=== PATIENT | female | born 1965 | race Caucasian/White ===

== ENCOUNTER 2020-10-20 17:31 | Emergency (ER) | payer MEDICAID, SELFPAY ==
[2020-10-20] VITALS (9 sets, daily range): BP systolic 122–163; BP diastolic 67–84; PULSE 47–70; RESP 16–18; TEMP 37; O2SAT 97–100; BMI 24.1
--- NOTE | 2020-10-20 17:49 | EKG12_ITS ---
Test Reason : CP Blood Pressure : / mmHG Vent. Rate : 058 BPM Atrial Rate : 058 BPM P-R Int : 146 ms QRS Dur : 080 ms QT Int : 420 ms P-R-T Axes : 081 066 080 degrees QTc Int : 412 ms Poor data quality, interpretation may be adversely affected Sinus bradycardia Septal infarct , age undetermined Abnormal ECG Confirmed by MYNOR SEVERINO, ALICIA ([id number]), editorial writer MARTITA ORTEGA ([id number]) on 10/23/2020 11:14:07 AM Referred By: LILLIAN Confirmed By:ALICIA LOWE MD
--- NOTE | 2020-10-20 17:50 | EDS_ITS ---
HPI History of Present Illness Chief Complaint: Chest Pain Informant: patient Onset/Context/Timing Onset: Hours (1) Activity at onset: sudden and rest Timing: Continuous Quality: Positive for Heaviness and Pressure Location: Substernal Current Severity: Moderate Maximum Severity: Moderate Worsened By: Nothing; Not Worsened By Movement of Arm, Movement of Torso and Breathing Relieved By: Nothing Associated Symptoms: Positive for Nausea, Dyspnea and Lightheadedness; Negative for Vomiting, Diaphoresis, Cough, Fever, Acid Reflux and Palpitations Narrative Narrative: Chest pain for about an hour, nonpleuritic substernal pressure/heaviness. Associated with shortness of breath, nausea, never had this before and no known history of heart problems. She states she pretty much just sees her doctor whenever she is sick. They have told her her blood pressures been a little elevated in the past but not put her on any medication for it. She is a 1.5 pack/day smoker, denies illicit drug use. Prior Similar Symptoms: No CVD Risk Factors: Positive for Hypertension (Possibly, but my doctor is watching it) and Smoking; Negative for Diabetes, Hypercholesterolemia and Family History 1' </=55 PE Risk Factors: Negative for Recent Travel/Surgery, Recent Immobilization, Prior DVT or PE, Cancer and OCP + Smoking + >/=35 PFSH PFSH no medical history Home Medications No Known/Unobtainable [No Known Home Medications] 05/31/15 [History Last Taken Unknown] Allergy/AdvReac Type Severity Reaction Status Date / Time No Known Allergies Allergy Verified 01/16/15 11:46 Social History (Updated 10/20/20 @ 17:[address] Spenser Morrow MD) Smoking Status: Heavy Smoker (>10/day) substance use type: does not use ROS ROS ED Constitutional Constitutional ED: Reports malaise; Denies chills or fever(s) Eyes Eyes: Denies change in vision or diplopia ENT ENT ED: Denies rhinorrhea or sore throat Cardiovascular Cardiovascular: Reports chest pain; Denies palpitations Respiratory/Chest Respiratory/Chest: Reports dyspnea; Denies cough Gastrointestinal Gastrointestinal: Reports nausea; Denies abdominal pain, diarrhea or vomiting Genitourinary Genitourinary ED: Denies dysuria or hematuria Musculoskeletal Musculoskeletal: Denies back pain or neck pain Integumentary Denies abscess or rash Neurologic Neurologic: Denies headache(s), paresthesias or weakness Psychiatric Psychiatric: Denies anxiety or suicidal thoughts EXAM Physical Exam Const Vital Signs: 10/20/20 17:41 10/20/20 17:58 10/20/20 17:59 Temperature 98.6 F Temperature Source Oral Pulse Rate 64 52 L Respiratory Rate 16 Respiratory Effort Normal Respiratory Pattern Normal Blood Pressure 151/75 H 151/75 H Blood Pressure Mean 100 Pulse Ox 100 98 Oxygen Delivery Method Room Air Room Air 10/20/20 18:05 10/20/20 18:18 10/20/20 19:21 Temperature Temperature Source Pulse Rate 70 54 L 47 L Respiratory Rate 16 Respiratory Effort Respiratory Pattern Blood Pressure 163/84 H 161/78 H 132/76 H Blood Pressure Mean 94 Pulse Ox 99 Oxygen Delivery Method 10/20/20 20:00 10/20/20 21:00 Temperature Temperature Source Pulse Rate 47 L 47 L Respiratory Rate 16 18 Respiratory Effort Respiratory Pattern Blood Pressure 128/73 H 130/67 H Blood Pressure Mean 91 88 Pulse Ox 97 99 Oxygen Delivery Method Positive well nourished and well developed General Appearance ED: well developed and NAD HEENT Reports moist mucous membranes normocephalic and atraumatic Eyes PERRL and EOMs intact bilaterally Neck full ROM, supple and no JVD Resp normal respiratory effort and clear to auscultation bilaterally Cardio regular rate, regular rhythm and no murmurs GI non-tender and non-distended Auscultation: normoactive bowel sounds Palpation: soft Back/Spine no CVA tenderness General Back: other FROM Extremity normal to inspection Extremity Narrative: no calf tenderness/cords General Extremety ED: Negative for edema, pulses abnormal or tenderness General Extremity: Negative for edema or pulses abnormal Neuro oriented x3, CN's II-XII intact bilaterally and no sensory deficits noted Sensorium / Orientation: awake and alert Motor Exam: strength 5/5 throughout Skin no rashes or lesions noted and no wounds General Skin Exam: other dry Heart Score History: Moderately Suspicious ECG: Normal Age: >45 - <65 years Risk Factors: 1 or 2 Risk Factors (smoking, possibly borderline HTN) Troponin: </= Normal Limit Score: 3 MDM MDM MDM Narrative Medical decision making narrative: Patient was given nitroglycerin, her pain resolved. As I discussed with the patient, and concerned about her symptoms. She is a heavy smoker which is her major risk factor. I offered admission but she does not want to be admitted and wants to go home and was amenable to a 3- hour delta troponin measurement which was done and negative. Her heart score supports this. She was advised to take aspirin daily, avoid physical exertion, and to follow-up with her doctor after the weekend, and we discussed reasons to return. She is comfortable with that plan. Lab Data Attestation: I reviewed the patient's lab results. Labs: Laboratory Results - last 24 hr 10/20/20 10/20/20 10/20/20 17:40 17:40 20:25 WBC 9.5 RBC 4.14 L Hgb 12.6 Hct 38.9 MCV 94.0 MCH 30.4 MCHC 32.4 RDW Std Deviation 46.5 H RDW Coeff of Teo 13.5 Plt Count 278 MPV 10.1 Immature Gran % (Auto) 0.100 Neut % (Auto) 44.7 L Lymph % (Auto) 48.5 H Murray % (Auto) 5.8 Eos % (Auto) 0.6 Baso % (Auto) 0.3 Absolute Neuts (auto) 4.3 Absolute Lymphs (auto) 4.63 H Nucleated RBC % 0 Sodium 136 Potassium 3.4 L Chloride 105 Carbon Dioxide 25.0 Anion Gap 6 BUN 14 Creatinine 0.89 Estim Creat Clear Calc 65.78 Est GFR (MDRD) Af Amer 85 Est GFR (MDRD) Non-Af 71 BUN/Creatinine Ratio 15.7 Glucose 101 Calcium 8.9 Troponin I < 0.015 < 0.015 Radiography Chest X-Ray - ED: 1 View, Read by ED Physician, Normal and No Acute Disease Diagnostic Testing: Radiology Impression Chest X-Ray 10/20/20 18:10 IMPRESSION: Normal x-ray examination of the chest. Electronically Signed: Shar Granda DO at 19:34 EDT Tel [phone], Service support , EKG Initial EKG: Attestation: I personally reviewed and interpreted this EKG as follows: Interpretation: Sinus Rhythm and No Acute Injury Pattern Prior EKG tracings: available for review Prior: Unchanged (2014) Discharge Plan Triage Chief Complaint: Chest Pain ED Provider: Spenser Morrow Dx/Rx/DC Orders Clinical Impression: Chest pain, unspecified Instructions: ED Chest Pain, Uncertain Cause Prescriptions: No Action No Known Home Medications RF: 0 Primary Care Provider: Tom Mccray Referrals: Tom Mccray MD [Primary Care Provider] - As soon as possible (call for appt ) Activity Restrictions/Additional Instructions: Take baby aspirin 81 mg once daily until you are seen to get other recommendations. Disposition Disposition: Home, self care Discharge Date/Time: 10/20/20 22:10
[2020-10-20] MEDS: Ondansetron 4 MG/2 ML Vial IV (17:58)
[2020-10-20] MEDS: Nitroglycerin SL (ED/IMG/CATH) 0.4 MG TABLET SL ×3 (17:59→18:18)
[2020-10-20] MEDS: Aspirin 81 MG TAB.CHEW 324 MG PO (17:59)
[2020-10-20 18:10] LABS: Absolute Lymphocyte Count 4.63 X10^3/uL (0.83-4.51); Absolute Neutrophil Count 4.3 X10^3/uL (2.0-7.7); Basophil# 0.03 X10^3/uL; Basophil% 0.3 % (0-1); Eosinophil# 0.06 X10^3/uL; Eosinophils% 0.6 % (0-5); Hematocrit 38.9 % (37-47); Hemoglobin 12.6 g/dL (12.0-15.0); Lymphocyte # 4.63 X10^3/ul (0.83-4.51); Lymphocyte % 48.5 % (19-41); Mean Corp Hgb Conc 32.4 g/dL (32-36); Mean Corpuscular Hgb 30.4 pg (27.0-32.0); Mean Platelet Vol. 10.1 fl (6.2-12.0); Monocyte# 0.55 X10^3/uL; Monocyte% 5.8 % (0-10); NRBC Flagged by Analyzer 0 % (0-5); Neutrophil # 4.26 X10^3/uL (2.7-7.7); Neutrophil % 44.7 % (47-70); Platelet Count 278 K/mm3 (150-450); RBC Distribution Width CV 13.5 % (11.6-14.6); RBC Distribution Width SD 46.5 fl (35.1-43.9); Red Blood Count 4.14 M/mm3 (4.2-5.4); White Blood Count 9.5 K/mm3 (4.4-11.0)
--- NOTE | 2020-10-20 18:10 | RAD_ITS ---
STUDY: X-RAY CHEST REASON FOR EXAM: Female, 55 years old. Chest pain TECHNIQUE: Frontal view COMPARISON: None. FINDINGS: The lungs are clear and expanded. There is no demonstrated pleural abnormality. Normal size heart. Normal mediastinum and ju[place]. Normal visualized pulmonary arteries. Normal visualized aortic arch and descending thoracic aorta. Normal visualized thoracic spine. Normal visualized ribs, clavicles, and shoulders. There is no demonstrated abnormality of the visualized soft tissue structures of the upper abdomen. RAD/Chest 1 View (Portable) IMPRESSION: Normal x-ray examination of the chest. Electronically Signed: Shar Granda DO at 19:34 EDT Tel [phone], Service support ,
[2020-10-20 18:23] LABS: Anion Gap 6 (5-15); BUN 14 mg/dL (7-18); BUN/Creat Ratio 15.7 RATIO (10-20); Calcium,Total 8.9 mg/dL (8.5-10.1); Chloride 105 mmol/L (98-107); Creatinine, Serum 0.89 mg/dL (0.55-1.02); EST Glomerular Filtration Rate 71 mL/min (>60); Est Glom Filt Rate - Afr Amer 85 mL/min (>60); Estimated Creatinine Clearance 65.78 ml/min; Glucose 101 mg/dL (74-106); Potassium 3.4 mmol/L (3.5-5.1); Sodium Level 136 mmol/L (136-145)
== END 2020-10-20 22:10 | disposition home or self-care (01) ==
PROVIDERS: Emergency Provider Emergency Medicine; PCP Family Medicine
DX: R07.9 Chest pain, unspecified (principal); R11.0 Nausea; R06.02 Shortness of breath; F17.210 Nicotine dependence, cigarettes, uncomplicated
CPT/HCPCS: 36415; 71045; 80048; 84484; 85025; 87426; 93005; 96374; 99285; A4216; J2405

== ENCOUNTER 2022-12-19 10:51 | Emergency (ER) | payer MEDICAID, SELFPAY ==
[2022-12-19 10:52] VITALS: BP 151/84; PULSE 67; RESP 18; TEMP 36.2; O2SAT 97; BMI 24.7
--- NOTE | 2022-12-19 11:11 | EDS_ITS ---
HPI History of Present Illness Chief Complaint: Dental Informant: patient Narrative Narrative: Increasing dental pain since this morning left upper. History of poor dentition. She has had extractions in the past. She called insurance and was told she only see a dentist in [place] in March. Denies hot cold sensitivities. States throbbing. No fevers. No allergies. She states her plans are for full teeth extraction. Denies history of gastric ulcers or kidney injury. Prior similar symptoms: Yes PFSH PFSH Home Medications ibuprofen 600 mg tablet 600 mg PO Q6H PRN PRN fever #30 TABLETS 12/19/22 [Rx Last Taken Unknown] penicillin V potassium 500 mg tablet 500 mg PO 4X/DAY #40 tabs 12/19/22 [Rx Last Taken Unknown] Allergy/AdvReac Type Severity Reaction Status Date / Time No Known Allergies Allergy Verified 01/16/15 11:46 Social History Smoking Status: Heavy Smoker (>10/day) substance use type: does not use ROS ROS ED Constitutional Constitutional ED: Denies chills, fever(s) or sweats Eyes Eyes: Denies change in vision ENT ENT ED: Reports other Details: Dental pain ; Denies dysphagia or sore throat Cardiovascular Cardiovascular: Denies chest pain, leg edema, palpitations or racing heartbeat Respiratory/Chest Respiratory/Chest: Denies cough, dyspnea or dyspnea on exertion Gastrointestinal Gastrointestinal: Denies abdominal pain, diarrhea, nausea or vomiting Genitourinary Genitourinary ED: Denies dysuria, hematuria or urinary frequency Musculoskeletal Musculoskeletal: Denies back pain, extremity pain or neck pain Integumentary Denies rash or wounds Neurologic Neurologic: Denies headache(s), paresthesias or weakness EXAM Physical Exam Const Vital Signs: 12/19/22 10:52 Temperature 97.1 F L Temperature Source Temporal Pulse Rate 67 Respiratory Rate 18 Blood Pressure 151/84 H Blood Pressure Mean 106 Pulse Ox 97 Positive well nourished and well developed General Appearance ED: well developed and NAD HEENT Reports moist mucous membranes HEENT Narrative: Diffuse dental caries with DKA. There is no fluctuance no focal abscess. There is tooth loosening to tooth #13, missing 14, decay of 15 missing 16, on the side with symptoms. No sublingual edema. Airway patent. No trismus. normocephalic and atraumatic Eyes PERRL, EOMs intact bilaterally and conjunctivae normal General Eye ED: Yes normal appearance of both eyes Neck no lymphadenopathy and supple General: Negative for tenderness Chest Wall Chest: Negative for tenderness Resp normal respiratory effort and normal air movement Effort and Inspection: symmetric chest movement; Negative for respiratory distress Cardio regular rate, regular rhythm and no murmurs Peripheral Pulses: pulses 2+ throughout GI normal to inspection, nondistended, normoactive bowel sounds and non-tender Palpation: Negative for guarding or rebound tenderness present Back/Spine no CVA tenderness and no thoracic nor lumbar tenderness Extremity normal to inspection General Extremety ED: Negative for edema or tenderness General Extremity: Negative for edema Neuro oriented x3 and no sensory deficits noted Sensorium / Orientation: awake and alert Skin no rashes or lesions noted and no wounds MDM MDM MDM Narrative Medical decision making narrative: Interventions / MDM: Differential diagnosis: Dentalgia, dental caries Diagnosis considered but do not suspect: No clinical dental abscess My EKG interpretation: N/A Imaging independently reviewed and interpreted by myself: N/A External documents reviewed: N/A Test considered but not ordered:N/A ED course: Patient dental pain with diffuse dental caries there is no abscess or swelling. Patient started on penicillin ibuprofen. Prescription sent to her pharmacy. She is given dental list to call. She understands dentist evaluation is for definitive treatment. All questions were answered. Re-evaluation: stable Disposition discussed with patient/family/significant other: Patient Case discussed with consulting clinician: N/A This note was generated with [employer] dictation software. It may contain incorrect words, spelling, and punctuation that were not noted in checking the note before signing. Discharge Plan Triage Chief Complaint: Dental ED Provider: John Cuellar Dx/Rx/DC Orders Clinical Impression: Dental caries, Dentalgia Instructions: ED Dental Pain, ED Dental Cavity Prescriptions: New ibuprofen 600 mg tablet 600 mg PO Q6H PRN PRN (Reason: fever) Qty: 30 0RF penicillin V potassium 500 mg tablet 500 mg PO 4X/DAY Qty: 40 0RF Primary Care Provider: Tom Mccray Referrals: Tom Mccray MD [Primary Care Provider] - Activity Restrictions/Additional Instructions: Take antibiotic and pain medicine as prescribed. May try calling from dental list for earlier follow-up. Need to see dentist for definitive treatment. Disposition Disposition: Home, Self Care
[2022-12-19] MEDS: Penicillin Vk 250 MG Tablet 500 MG PO (11:12)
[2022-12-19] MEDS: Ibuprofen 600 MG Tablet PO (11:13)
== END 2022-12-19 11:31 | disposition home or self-care (01) ==
LOC: ED 11:26
PROVIDERS: Emergency Provider Emergency Medicine; PCP Family Medicine; Visit Provider Emergency Medicine
DX: K02.9 Dental caries, unspecified (principal); F17.200 Nicotine dependence, unspecified, uncomplicated; K08.89 Other specified disorders of teeth and supporting structures
CPT/HCPCS: 99283

== ENCOUNTER 2024-03-13 16:51 | Emergency (ER) | payer MEDICAID, SELFPAY ==
[2024-03-13 16:52] VITALS: BP 130/70; PULSE 66; RESP 16; TEMP 35.8; O2SAT 98; BMI 28.0
--- NOTE | 2024-03-13 17:40 | RAD_ITS ---
EXAM: XR CHEST, 2 VIEWS CLINICAL INDICATION: atraumatic right chest wall pain TECHNIQUE: Frontal and lateral views of the chest. COMPARISON: 10.20.20 FINDINGS: LUNGS AND PLEURAL SPACES: Unremarkable. No consolidation or edema. No pneumothorax. No effusion. HEART: Unremarkable. Cardiac silhouette not enlarged. MEDIASTINUM: Central airways and mediastinal contour are unremarkable. BONES/JOINTS: Unremarkable. No acute fracture. SOFT TISSUES: Unremarkable. RAD/Chest PA and Lateral IMPRESSION: No radiographic evidence of acute cardiopulmonary disease. Electronically Signed: Benja Alexander MD at 18:03 EDT ,
--- NOTE | 2024-03-13 17:43 | ED.VIS.CHEST ---
HPI History of Present Illness Chief Complaint: Chest Other Informant: patient Onset/Context/Timing Onset: Today and Hours Activity at onset: sudden Timing: Continuous Quality: Positive for Sharp Location: - (Right lateral rib cage.) Current Severity: Mild Maximum Severity: Moderate Worsened By: Movement of Torso Relieved By: Remaining Still Associated Symptoms: Negative for Nausea, Vomiting, Diaphoresis, Dyspnea, Cough, Fever, Lightheadedness, Acid Reflux or Palpitations Narrative Narrative: 58-year-old female was reaching for something and felt a pop in her right lateral rib cage and has had pain since that time today. Similar episode 1 to 2 weeks ago. No prior collapsed lung. No anterior left-sided chest pain. No history of DVT or PE. No fall or trauma. Denies shortness of breath, fever or cough. Denies history of COPD or prior pneumothorax. Worse with movement of her torso. Prior Similar Symptoms: Yes CVD Risk Factors: Positive for Hypertension PE Risk Factors: Negative for Recent Travel/Surgery, Recent Immobilization, Prior DVT or PE, Cancer or OCP + Smoking + >/=35 TAD Risk Factors: Negative for Marfan's Syndrome PFSH PFSH Home Medications ?Medication ?Instructions ?Recorded ?Last Taken ?Type ibuprofen 600 mg tablet 600 mg PO Q6H PRN PRN fever #30 12/19/22 Unknown Rx TABLETS penicillin V potassium 500 mg 500 mg PO 4X/DAY #40 tabs 12/19/22 Unknown Rx tablet Allergy/AdvReac Type Severity Reaction Status Date / Time No Known Allergies Allergy Verified 03/13/24 16:54 Social History Smoking Status: Heavy Smoker (>10/day) substance use type: does not use ROS ROS ED ROS Narrative Denies recent illness. Constitutional Constitutional ED: Denies fever(s) Eyes Eyes: Reports none ENT ENT ED: Denies ear pain Cardiovascular Cardiovascular: Reports chest pain and other Details: Right-sided rib cage pain. Respiratory/Chest Respiratory/Chest: Denies cough or dyspnea Gastrointestinal Gastrointestinal: Denies abdominal pain Genitourinary Genitourinary ED: Denies dysuria or hematuria Musculoskeletal Musculoskeletal: Denies arthralgias Integumentary Denies abscess Neurologic Neurologic: Denies headache(s) Psychiatric Psychiatric: Denies anxiety Endocrine Endocrinology: Denies cold intolerance Hematologic/Lymphatic Hematologic/Lymphatic: Denies easy bleeding Allergic/Immunologic Allergic/Immunologic ED: Denies mouth swelling EXAM Physical Exam Narrative Exam Narrative: Well-appearing middle-aged female. Vital signs stable afebrile. Pulse ox 98% on room air. No distress. Sitting upright in bed. H EENT exam unremarkable. Neck nontender. Lungs clear to auscultation bilaterally. Heart regular rhythm rate about 65 no murmur. Chest wall nontender except right lateral rib cage midaxillary line along the bra strap she has an area of tenderness. There is no ecchymosis or bruising. No subcu air or crepitance. No bony deformity. It is tender to palpation. Left rib cage nontender. Abdomen soft nontender. Back nontender. Moving all 4 extremities. Normal racebook writer strength. Normal dorsi plantarflexion. Nontender no edema. She is awake and alert. No focal motor deficits. Const Vital Signs: 03/13/24 16:52 Temperature 96.5 F L Temperature Source Temporal Pulse Rate 66 Respiratory Rate 16 Blood Pressure 130/70 H Blood Pressure Mean 90 Pulse Ox 98 Oxygen Delivery Method Room Air Positive well nourished; Negative for cachectic, contractures or unkempt General Appearance ED: NAD; Negative for unkempt, cachectic, contractures or pallor Nutritional Appearance: Negative for cachectic HEENT Reports moist mucous membranes normocephalic and atraumatic; Negative for trauma or tenderness Eyes PERRL and EOMs intact bilaterally General Eye ED: Negative for pale conjunctiva or scleral icterus Neck no lymphadenopathy, supple and no JVD General: Negative for tenderness Chest Wall inspection of chest normal; Negative for palpation of chest normal Chest Narrative: Palpation right chest wall mid axillary line along the bra strap she has tenderness consistent with a myofascial strain. I do not feel any crepitance or subcu air. No bony deformity. Chest: tenderness Resp normal respiratory effort and clear to auscultation bilaterally Effort and Inspection: Negative for respiratory distress Auscultation: Negative for rales, rhonchi or wheezes Cardio regular rate, regular rhythm, S1 normal heart sound, S2 normal heart sound and no murmurs Peripheral Pulses: pulses 2+ throughout GI normal to inspection, nondistended, normoactive bowel sounds, soft to palpation, non-tender, non-distended and no masses Back/Spine no CVA tenderness and no thoracic nor lumbar tenderness Extremity General Extremety ED: Negative for edema General Extremity: Negative for edema Neuro oriented x3 and CN's II-XII intact bilaterally Sensorium / Orientation: awake, alert, oriented to person, oriented to place and oriented to time; Negative for confused or lethargic Motor Exam: strength 5/5 throughout Psych mental status grossly normal Appearance: Negative for unkempt Skin no rashes or lesions noted and no wounds General Skin Exam: Negative for jaundice or pallor Rashes: No rashes noted Trauma: Negative for abrasion or laceration MDM MDM MDM Narrative Medical decision making narrative: 58-year-old female felt a pop and fell right rib cage pain. Denies any trauma. X-ray being obtained. Suspect musculoskeletal pain possibly rib cage strain of the intercostal muscle or rib fracture. Do not believe this to be a pneumothorax. It is not cardiac sounding chest pain at all. Repeat exam unchanged at 7:45 PM. I think she pulled a intercostal muscle. Ice to the area. Motrin and Tylenol for pain. Follow-up if not improving. History & Record Review Discussion w/independent historian: Patient Additional record(s) reviewed:: Prior inpatient record, Prior outpatient record, Prior ED visit and Prior labs Radiography Chest X-Ray - ED: 2 View, Read by ED Physician, Read by Radiologist, Normal, Heart, Lungs, Mediastinum, Bony Structures, No Acute Disease and Chronic Changes Diagnostic Testing: Chest x-ray, 2 views, AP and lateral, interpreted both by myself and the radiologist. Shows no acute abnormality. Chronic changes. No pneumothorax. No rib fracture. No acute abnormality to determine what is causing her right rib cage pain. Discharge Plan Triage Chief Complaint: Chest Other ED Provider: Tripp Rolle Dx/Rx/DC Orders Clinical Impression: Intercostal muscle strain Instructions: ED Chest Wall Strain Prescriptions: No Action ibuprofen 600 mg tablet 600 mg PO Q6H PRN PRN (Reason: fever) Qty: 30 0RF penicillin V potassium 500 mg tablet 500 mg PO 4X/DAY Qty: 40 0RF Primary Care Provider: Tom Mccray Referrals: Tom Mccray MD [Primary Care Provider] - 1 Week if not improving Activity Restrictions/Additional Instructions: Chest x-ray looks good. I think this pain is secondary to pulled a muscle between your rib cage. Ice to the area. Motrin and Tylenol for pain. This should progressively improve. Follow-up with your doctor if not. Return if a lot worse. Print Language: Bhutanese Disposition Disposition: Home, Self Care
== END 2024-03-13 19:58 | disposition home or self-care (01) ==
PROVIDERS: Emergency Provider Emergency Medicine; PCP Family Medicine; Visit Provider Emergency Medicine
DX: S29.011A Strain of muscle and tendon of front wall of thorax, initial encounter (principal); F17.200 Nicotine dependence, unspecified, uncomplicated; I10 Essential (primary) hypertension; X50.1XXA Overexertion from prolonged static or awkward postures, initial encounter
CPT/HCPCS: 71046; 99282

== ENCOUNTER 2024-07-20 08:45 | Emergency (ER) | payer MEDICAID, SELFPAY ==
[2024-07-20 08:46] VITALS: BP 102/56; PULSE 64; RESP 20; TEMP 35.8; O2SAT 100; BMI 25.8
--- NOTE | 2024-07-20 08:57 | ED.RN ---
PT HAS HX OF HTN, TAKES BP MEDS AND SAID SHE RECENTLY HAD A SELF DX OF INFLUENZA. SX OF DIARRHEA, NON PRODUCTIVE COUGH. PT SAID HER FLUID AND FOOD INTAKE HAS BEEN REDUCED FOR THE LAST FEW DAYS. SHE TOOK HER BP MEDS THIS MORNING AND FEELING FOGGY HAS INCREASED.
--- NOTE | 2024-07-20 09:08 | EDS_ITS ---
HPI History of Present Illness Chief Complaint: Dizziness Informant: patient Narrative Narrative: 59-year-old female presenting for dizziness. It has been episodic, triggered with quick movement/position changes. She states if she lies down the symptoms are resolved. She states the episodes last less than a minute as long as she remains still. They are associated with nausea and feeling poorly but no vomiting or focal neurologic symptoms. No trouble walking or off balance, although she feels like she has a sensation of movement and off balance when she has the symptoms and is standing. Denies any problems with speech. No numbness tingling weakness anywhere in her body with this. No headache. No earache, tinnitus, changes in hearing, or changes in speech or loss of hearing/speech. She states this has been going on for 3 days or so, and for several days prior to that she thinks she has the flu, because several other family members have been ill, one of them tested positive for the flu so the rest did not get tested including her, she states she has had this before and it feels like the flu. Cough, congestion, malaise, diarrhea. No headache, fevers, chills, sore throat, earache. [facility] Medical History HTN (hypertension) Home Medications ?Medication ?Instructions ?Recorded ?Last Taken ?Type ibuprofen 600 mg tablet 600 mg PO Q6H PRN PRN fever #30 12/19/22 Unknown Rx TABLETS lisinopril 30 mg tablet 30 mg PO DAILY 07/20/24 07/20/24 History meclizine 25 mg tablet 25 mg PO TID PRN dizziness #20 tabs 07/20/24 Unknown Rx ondansetron 8 mg disintegrating 8 mg PO Q8H PRN nausea and 07/20/24 Unknown Rx tablet vomiting #15 tabs rosuvastatin 10 mg tablet 10 mg PO QHS 07/20/24 07/19/24 History Allergy/AdvReac Type Severity Reaction Status Date / Time No Known Allergies Allergy Verified 07/20/24 08:56 Surgical History H/O: hysterectomy Social History Smoking Status: Heavy Smoker (>10/day) substance use type: does not use ROS ROS ED Constitutional Constitutional ED: Reports other Details: Poor appetite and p.o. intake in the last several days due to illness, nausea ; Denies chills or fever(s) Eyes Eyes: Denies change in vision or diplopia ENT ENT ED: Reports disequillibrium, dizziness, nasal congestion and rhinorrhea; Denies ear pain, headache(s), hearing loss, sore throat or tinnitus Cardiovascular Cardiovascular: Denies chest pain or palpitations Respiratory/Chest Respiratory/Chest: Reports cough; Denies dyspnea Gastrointestinal Gastrointestinal: Reports diarrhea and nausea; Denies abdominal pain or vomiting Genitourinary Genitourinary ED: Denies dysuria or hematuria Musculoskeletal Musculoskeletal: Denies myalgias or neck pain Integumentary Denies abscess or rash Neurologic Neurologic: Reports as per HPI and disequilibrium; Denies abnormal gait, abnormal speech, confusion, headache(s), lack of coordination, loss of vision, other visual disturbances, paresthesias, seizure-like activity, syncope or weakness Psychiatric Psychiatric: Denies depression or suicidal thoughts Endocrine Endocrinology: Denies polydipsia or polyuria EXAM Physical Exam Const Vital Signs: 07/20/24 08:46 Temperature 96.5 F L Temperature Source Temporal Pulse Rate 64 Respiratory Rate 20 H Blood Pressure 102/56 L Blood Pressure Mean 71 Pulse Ox 100 Oxygen Delivery Method Room Air Positive well nourished and well developed General Appearance ED: well developed and NAD HEENT Reports TM's clear and moist mucous membranes normocephalic and atraumatic Tympanic Membrane ED: Yes TM's clear Throat: Negative for posterior oropharynx abnormal Eyes PERRL and EOMs intact bilaterally Eyes Narrative: No pathologic non-fatigable, vertical, rotatory nystagmus. Neck no lymphadenopathy, supple and no meningeal signs Resp normal respiratory effort and clear to auscultation bilaterally Cardio no murmurs Rate: regular rate Rhythm: regular rhythm GI non-tender and non-distended Auscultation: normoactive bowel sounds Palpation: soft Back/Spine no CVA tenderness General Back: other FROM Extremity normal to inspection General Extremety ED: Negative for edema, pulses abnormal or tenderness General Extremity: Negative for edema or pulses abnormal Neuro oriented x3, CN's II-XII intact bilaterally and no sensory deficits noted Neuro Narrative: Normal speech no dysarthria or aphasia. No dysmetria, normal [id number] bilaterally. Johnston-Hallpike maneuver reproduces symptoms bilaterally much worse on the left. Sensorium / Orientation: alert Motor Exam: strength 5/5 throughout Psych mental status grossly normal Skin no rashes or lesions noted and no wounds Lesions: no lesions Rashes: no rashes MDM MDM MDM Narrative Medical decision making narrative: Patient's blood pressure is a little on the low side, but she is not hy potensive. She is not having any near syncopal or syncopal episodes, basically asymptomatic with regards to this pressure. I think this is all peripheral vertigo, likely related to the viral illness although BPPV cannot be ruled out since it is closer to the symptoms she is having. At this point get a give her prescription for meclizine and Zofran as well as doses here and recommend outpatient follow-up if the symptoms do not self-resolve in 1 week or less. Discharge Plan Triage Chief Complaint: Dizziness ED Provider: Spenser Morrow Dx/Rx/DC Orders Clinical Impression: Peripheral vertigo, unspecified, Influenza-like illness Instructions: ED Vertigo, Unspecified Prescriptions: New ondansetron 8 mg tablet,disintegrating 8 mg PO Q8H PRN (Reason: nausea and vomiting) Qty: 15 0RF meclizine 25 mg tablet 25 mg PO TID PRN (Reason: dizziness) Qty: 20 0RF No Action ibuprofen 600 mg tablet 600 mg PO Q6H PRN PRN (Reason: fever) Qty: 30 0RF penicillin V potassium 500 mg tablet 500 mg PO 4X/DAY Qty: 40 0RF Primary Care Provider: Tom Mccray Referrals: Tom Mccray MD [Primary Care Provider] - 1 Week if not improving Print Language: Chadian Disposition Disposition: Home, Self Care
[2024-07-20] MEDS: Meclizine HCl 25 MG Tablet PO (09:18)
[2024-07-20] MEDS: Ondansetron ODT 4 MG Tablet 8 MG PO (09:19)
[2024-07-20 09:22] VITALS: BP 89/54; PULSE 59; RESP 17; TEMP 36.9; O2SAT 98
--- NOTE | 2024-07-20 09:22 | ED.RN ---
pt advised to get her fluid intake in, pt denies liking water but has been trying to get some in and gatorade. daughter is helping with fluid intake at home per pt.
== END 2024-07-20 09:23 | disposition home or self-care (01) ==
LOC: ED 09:19
PROVIDERS: Emergency Provider Emergency Medicine; PCP Family Medicine; Visit Provider Emergency Medicine
DX: H81.399 Other peripheral vertigo, unspecified ear (principal); Z90.710 Acquired absence of both cervix and uterus; F17.210 Nicotine dependence, cigarettes, uncomplicated; J10.1 Influenza due to other identified influenza virus with other respiratory manifestations
CPT/HCPCS: 99282